=== PATIENT | male | born 1985 | race Caucasian/White ===

== ENCOUNTER 2021-02-06 20:19 | Emergency (ER) | payer OTHER ==
[2021-02-06] MEDS ORDERED: BACITRAYCIN PLU28 GM TP (20:41)
== END 2021-02-06 20:40 | disposition home or self-care (01) ==
LOC: ER1 20:19
DX: S80.811A Abrasion, right lower leg, initial encounter (principal); F17.210 Nicotine dependence, cigarettes, uncomplicated; W22.8XXA Striking against or struck by other objects, initial encounter
CPT/HCPCS: 99282